=== PATIENT | female | born 1965 | race Caucasian/White ===

== ENCOUNTER 2023-12-31 11:03 | Outpatient (AMB) | payer MEDICARE, MEDICAID, SELFPAY ==
--- NOTE | 2023-12-31 11:06 | MHC.OFFVIS ---
Vital Signs 12/31/23 11:19 Height 4 ft 10 in Weight 169 lb 12.095 oz BMI 35.5 BP 128/70 Blood Pressure Location Rt brachial Position Sitting Pulse 78 Pulse Source Pulse Oximeter Pulse Oximetry (%) 97 Oxygen Delivery Method Room Air Intake Visit Reasons: Colonoscopy Screening Intake Note: Lisa presents in office today for a scheduled initial assessment. CC: Pt is also reporting GI concerns involving abd pain and trouble emptying their bowels intermittently. Pt is also reporting a significant hx of GERD which they are taking omeprazole for PRN. 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 Pt has also noticed dysphagia as well. Pt reports that this has been occurring for years. Pt has no previous hx of colo. Pt does report family hx of polyps but is unable to recall what kind specifically. Pt does also report family hx of colon cancer (cousin). Hydrodynamicist Required: No Allergies hydrocodone [From Vicodin] Adverse Reaction (Intermediate, Verified 12/31/23 11:16) Nausea oxycodone [From Percocet] Adverse Reaction (Intermediate, Verified 12/31/23 11:16) Nausea HPI HPI Colonoscopy Screening: Details: 58-year-old female here for preprocedural meeting to discuss a screening colonoscopy. She is referred by [facility] [place]. PMX Allergic rhininits Asthma/COPD Smoker Hypertension Diabetes High cholesterol Obesity Major depressive disorder Umbilical hernia Low back pain Fibromyalgia Stress urinary incontinence - has to push to empty bladder * SURGICAL HISTORY C section x 2 Rt rotator cuff repair CTR left rt ankle surgery dental surgery * ALLERGIES Hydrocodone Oxycodone * [facility]: none in our system and I can't find any in [facility] site where she thinks she had some. She shows me labs in her pt portal from 09/2023 showing: Unremarkable CBC, normal renal panel and hepatic panel, A1C 8.1%. TODAY'S VISIT This is her first colonoscopy. She strains to pass her stools and I educate her about possible prolapse c/t her sx,s he has seen a urologist w/o resolution. She needs request redirection as she want to cover multiple unrelated health problems. There are no prior problems with anesthesia or sedation. No ID problems. She has well controlled COPD/asthma but denies cardiac problems. Her mother had colon polyps removed. No known 1st degree with CRC. [facility] Social History Alcohol intake: current Comment: Occasionally, social. Patient Tobacco Use Status: Current everyday Tobacco user Cigarette Packs Per Day: 1 Use of substances other than those prescribed or required for medical reasons: No Review of Systems Const Denies fatigue, Denies fever(s), Denies night sweats, Denies poor appetite and Denies weight loss Eyes Details: glasses Reports requires corrective lenses ENT Reports Normal hearing present, Denies dental pain, Denies dysphagia, Denies hearing loss, Denies mouth pain, Denies odynophagia, Denies throat swelling, Denies tongue swelling and Reports other (Dentition adequate) Card Reports no additional complaints Resp Reports wheezing GI Details: Denies abdominal pain, Denies melena, Denies bloating, Denies hematochezia, Reports constipation, Denies GI cramping, Denies dysphagia, Denies excessive flatus, Denies early satiety, Denies heartburn, Denies diarrhea, Denies nausea, Denies odynophagia, Denies vomiting and Denies hematemesis Reports difficulty voiding and Reports urinary incontinence Musc Reports back pain, Reports myalgias and Reports arthralgias Skin/Breast Denies pruritus, Denies lesions, Denies rash and Denies jaundice Neuro Reports Normal hearing present and Denies Abnormal speech present Endo Denies fatigue Aller/Immun Reports seasonal rhinorrhea, Denies throat swelling, Denies tongue swelling and Reports wheezing Physical Exam Vital Signs: Last Vital Signs Pulse 78 12/31/23 11:19 BP 128/70 12/31/23 11:19 Pulse Ox 97 12/31/23 11:19 Oxygen Delivery Method Room Air 12/31/23 11:19 BMI result Body Mass Index 35.5 Const General: cooperative, no acute distress, well developed and well groomed Nutritional Appearance: well nourished and obese Orientation/consciousness: oriented to person, oriented to place and oriented to time Limitations: No language barrier HEENT Head: Yes normocephalic and Yes atraumatic Eyes General: appearance normal, both eyes and all related structures Pupils: Equal, round and reactive pupils present Neck Neck: Yes normal visual inspection and Yes no lymphadenopathy Thyroid: Thyroid normal Resp Effort & Inspection: normal respiratory effort and able to speak in complete sentences Auscultation: wheezes expiratory wheezes and diminished lung sounds bilateral in the lower lung baez Cardio Rate: regular rate Rhythm: regular rhythm Heart sounds: Normal, physiologic split S2 sound present Peripheral pulses: radial pulses present and posterior tibial pulses present GI Inspection: No distended, Yes Abdominal panniculus present, Yes obesity and Yes striae Palpation (GI): Soft to palpation, nontender, no guarding, not rigid, No hepatosplenomegaly present and Hernia present umbilical Percussion: Yes normal to percussion Auscultation: normal bowel sounds Rectal Exam - Female: deferred Abdomen image: 1. surgical scar Skin General skin exam: no rashes or lesions noted, turgor normal, skin not dry, no jaundice, No spider nevi and no striae Rashes: no rashes Nails: normal Neuro General: oriented to person, oriented to place and oriented to time Cranial nerves: Yes Equal, round and reactive pupils present and Yes Normal hearing present Speech: No Abnormal speech present Extrem General: Yes normal to inspection, No clubbing, No cyanosis and No edema Psych Appearance: grossly normal and well kempt Mental Status: mental status grossly normal Speech and movement: Normal speech and movement present Affect: normal affect Attitude: cooperative Thought process: Normal thought process present and not confabulating Thought content: Normal thought content present Insight: Fair insight present (Psych) and Limited insight present (Psych) Judgement: Fair judgement present (Psych) and Limited judgement present (Psych) Assessment & Plan Assessment & Plan (1) Pre-op examination: Code(s): Z01.818 - Encounter for other preprocedural examination Category: Medical Plan This is her first colonoscopy. She strains to pass her stools and I educate her about possible prolapse c/t her sx,s he has seen a urologist w/o resolution. She needs request redirection as she want to cover multiple unrelated health problems. There are no prior problems with anesthesia or sedation. No ID problems. She has well controlled COPD/asthma but denies cardiac problems. Her mother had colon polyps removed. No known 1st degree with CRC. Orders: Orders Complete Blood Count Auto Diff Today Z01.818 - Encounter for other preprocedural examination Colonoscopy - GI Use Only Today Z01.818 - Encounter for other preprocedural examination Comprehensive Met. Panel Today Z01.818 - Encounter for other preprocedural examination Medications: New sod sulf-pot chloride-mag sulf 1.479-0.188- 0.225 gram (Sutab) PO PER PKG DIR for colonoscopy prep 24 tabs 0RF Coding Level of Care Code New Pt Level 3 (30735) Diagnoses Pre-op examination Z01.818
[2023-12-31 11:19] VITALS: BP 128/70; PULSE 78; O2SAT 97; BMI 35.5
== END 2023-12-31 11:56 | disposition home or self-care (01) ==
PROVIDERS: PCP Physician Assistant Medical; Visit Provider Nurse Practitioner
DX: Z01.818 Encounter for other preprocedural examination (principal); Z12.11 Encounter for screening for malignant neoplasm of colon; Z83.719 Family history of colon polyps, unspecified
CPT/HCPCS: 99024

== ENCOUNTER 2023-12-31 11:03 | Outpatient (REF) | payer MEDICARE, MEDICAID, SELFPAY ==
[2023-12-31 12:48] LABS: MANUAL DIFF FLAG NO
[2023-12-31 14:00] LABS: Basophils Absolute Auto 0.1 X10*3/uL (0.0-0.2); Basophils Percent Auto 0.9 % (0-2); Eosinophils Absolute Auto 0.3 X10*3/uL (0.0-0.4); Eosinophils Percent Auto 2.7 % (0-4); Hematocrit 44.9 % (37.0-47.0); Hemoglobin 15.1 g/dl (12.0-16.0); Imm Gran Abs Auto 0.05 X10*3/uL (0.00-0.03); Imm Gran Pct Auto 0.5 % (0.0-0.4); Lymphocytes Absolute Auto 3.8 X10*3/uL (1.2-4.9); Lymphocytes Percent Auto 39.2 % (20-40); Mean Corpuscular HGB Conc 33.6 g/dl (31.0-35.0); Mean Corpuscular Hemoglobin 28.9 pg (27.0-33.0); Mean Corpuscular Volume 85.9 fL (80.0-98.0); Mean Platelet Volume 9.9 fL (9.4-12.3); Monocytes Absolute Auto 0.6 X10*3/uL (0.1-1.2); Monocytes Percent Auto 6.4 % (2-11); Neutrophils Absolute Auto 4.9 x10*3/uL (2.0-8.3); Neutrophils Percent Auto 50.3 % (45-73); Platelet Count 200 X10*3/uL (160-400); Red Blood Count 5.23 X10*6/uL (4.20-5.50); Red Cell Distribution Width 13.9 % (11.0-16.0); White Blood Count 9.7 X10*3/uL (4.8-10.8)
[2023-12-31 14:50] LABS: Alanine Aminotransferase 22 U/L (0-31); Albumin Level 4.2 g/dL (3.5-5.0); Alkaline Phosphatase 82 U/L (39-117); Anion Gap 10 (12-20); Aspartate Amino Transferase 17 U/L (5-31); Bilirubin Total 0.3 mg/dL (0.0-1.0); Blood Urea Nitrogen 10 mg/dL (9-16); Calcium 9.3 mg/dL (8.4-10.2); Carbon Dioxide 27 mmol/L (22-29); Chloride 106 mmol/L (96-108); Estimated Glomerular Filt Rate > 60; Glucose Random 171 mg/dL (60-115); Potassium 4.1 mmol/L (3.3-5.1); Sodium 139 mmol/L (135-145); Total Protein 7.3 g/dL (6.5-8.0)
== END 2023-12-31 11:04 | disposition home or self-care (01) ==
LOC: HO.LAB 11:03
PROVIDERS: PCP Physician Assistant Medical; Visit Provider Nurse Practitioner
DX: Z01.818 Encounter for other preprocedural examination (principal)
CPT/HCPCS: 36415; 80053; 85025; 99212

== ENCOUNTER 2024-06-13 07:48 | Day surgery (SDC) | payer MEDICARE, MEDICAID, SELFPAY ==
[2024-06-09 13:41] VITALS: BMI 35.5
--- NOTE | 2024-06-10 09:12 | P.CONAN_ITS ---
Documented by User: Shannon Cortes NP 06/10/24 09:12 HPI - Anesthesia Eval Consult details Narrative: 59yo F for Colonoscopy Anesthesia Pre-Procedure Meds Is the patient on any of the following meds?: GLP1/DPP4 and SGLT2 Inhib PMFSH Active Problems Active Problems: All Active Problems Pre-op examination (Acute) Low back pain (Acute) Umbilical hernia (Acute) Major depressive disorder (Acute) High cholesterol (Acute) Diabetes (Acute) Hypertension (Acute) Obesity (BMI 30.0-34.9) (Acute) Smoker (Acute) Asthma with COPD (Acute) Past Medical History Medical History GERD (gastroesophageal reflux disease) Obesity Smoker Asthma with COPD Depression Diabetes Elevated cholesterol HTN (hypertension) Back pain Surgical History Surgical History History of ankle surgery Previous section Hx of repair of right rotator cuff Social History Social History Are you a primary day care home provider to a significant other at home: No Do you presently have visiting nurse or other home services: No Alcohol intake: current Comment: Occasionally, social. Patient Tobacco Use Status: Current everyday Tobacco user Tobacco use type: Cigarette Cigarette Packs Per Day: 1 Smoked in Last 30 Days: Yes Patient Interested in Nicotine Replacement: No Have you been hit, kicked, punched, or otherwise hurt by someone within the past year? If so, by whom?: No Are you DNR?: No Advance Directives: No Advance Directives Information Provided: Yes Recently lost weight without trying: No Nutrition Risks: No Nutritional Risk Meds Allergies Allergy/AdvReac Type Severity Reaction Status Date / Time hydrocodone [From Vicodin] AdvReac Intermediate Nausea Verified 06/13/24 08:04 oxycodone [From Percocet] AdvReac Intermediate Nausea Verified 06/13/24 08:04 Home Medications ?Medication ?Instructions ?Recorded ?Confirmed ?Last Taken ?Type albuterol sulfate 2.5 mg/3 mL 2.5 mg inhalation Q4-6H PRN 12/31/23 06/09/24 Unknown History (0.083 %) solution for nebulization Shortness Of Breath albuterol sulfate 90 mcg/actuation 2 puff inhalation Q4H PRN 12/31/23 06/09/24 Unknown History aerosol inhaler (Ventolin HFA) Shortness Of Breath atorvastatin 20 mg tablet 20 mg PO DAILY 12/31/23 06/09/24 Unknown History blood sugar diagnostic (Accu-Chek #10 ea 12/31/23 Unknown History Guide test strips) bupropion HCl 150 mg 24 hr tablet, 150 mg PO DAILY 12/31/23 06/09/24 Unknown History extended release cetirizine 10 mg tablet 10 mg PO DAILY 12/31/23 06/09/24 Unknown History cholecalciferol (vitamin D3) 50 50 mcg PO DAILY 12/31/23 06/13/24 Unknown History mcg (2,000 unit) capsule empagliflozin 25 mg tablet 25 mg PO DAILY 12/31/23 06/09/24 06/08/24 History (Jardiance) escitalopram oxalate 20 mg tablet 20 mg PO DAILY 12/31/23 06/09/24 Unknown History fluticasone 250 mcg-salmeterol 50 1 ea inhalation BID 12/31/23 06/09/24 Unknown History mcg/dose blistr powdr for inhalation (Bayron Bynum) fluticasone propionate 50 1 spray intranasal DAILY 12/31/23 06/09/24 Unknown History mcg/actuation nasal spray,suspension ketoconazole 2 % topical cream 1 appl topical DAILY 12/31/23 06/09/24 Unknown History lorazepam 1 mg tablet 1 mg PO DAILY PRN Anxiety 12/31/23 06/09/24 Unknown History losartan 25 mg tablet 25 mg PO DAILY 12/31/23 06/09/24 Unknown History omeprazole 20 mg capsule,delayed 20 mg PO DAILY 12/31/23 06/09/24 Unknown History release semaglutide 0.25 mg or 0.5 mg (2 0.25 mg subcut QWEEK 06/09/24 06/09/24 06/03/24 History mg/3 mL) subcutaneous pen injector (Ozempic) Exam Height,Weight and Vital Signs: Height 4 ft 10 in Weight 77.111 kg Assessment and Plan Assessment Anesthesia Assessment: Chart Reviewed Documented by User: Jen Blue MD 06/13/24 09:25 [facility] Past Medical History Medical History GERD (gastroesophageal reflux disease) Obesity Smoker Asthma with COPD Depression Diabetes Elevated cholesterol HTN (hypertension) Back pain Surgical History Surgical History History of ankle surgery Previous section Hx of repair of right rotator cuff History of Problems with Anesthesia: No Social History Social History Are you a primary day care home provider to a significant other at home: No Do you presently have visiting nurse or other home services: No Alcohol intake: current Comment: Occasionally, social. Patient Tobacco Use Status: Current everyday Tobacco user Tobacco use type: Cigarette Cigarette Packs Per Day: 1 Smoked in Last 30 Days: Yes Patient Interested in Nicotine Replacement: No Have you been hit, kicked, punched, or otherwise hurt by someone within the past year? If so, by whom?: No Are you DNR?: No Advance Directives: No Advance Directives Information Provided: Yes Recently lost weight without trying: No Nutrition Risks: No Nutritional Risk Meds Allergies Allergy/AdvReac Type Severity Reaction Status Date / Time hydrocodone [From Vicodin] AdvReac Intermediate Nausea Verified 06/13/24 08:04 oxycodone [From Percocet] AdvReac Intermediate Nausea Verified 06/13/24 08:04 Home Medications ?Medication ?Instructions ?Recorded ?Confirmed ?Last Taken ?Type albuterol sulfate 2.5 mg/3 mL 2.5 mg inhalation Q4-6H PRN 12/31/23 06/09/24 Unknown History (0.083 %) solution for nebulization Shortness Of Breath albuterol sulfate 90 mcg/actuation 2 puff inhalation Q4H PRN 12/31/23 06/09/24 Unknown History aerosol inhaler (Ventolin HFA) Shortness Of Breath atorvastatin 20 mg tablet 20 mg PO DAILY 12/31/23 06/09/24 Unknown History blood sugar diagnostic (Accu-Chek #10 ea 12/31/23 Unknown History Guide test strips) bupropion HCl 150 mg 24 hr tablet, 150 mg PO DAILY 12/31/23 06/09/24 Unknown History extended release cetirizine 10 mg tablet 10 mg PO DAILY 12/31/23 06/09/24 Unknown History cholecalciferol (vitamin D3) 50 50 mcg PO DAILY 12/31/23 06/13/24 Unknown History mcg (2,000 unit) capsule empagliflozin 25 mg tablet 25 mg PO DAILY 12/31/23 06/09/24 06/08/24 History (Jardiance) escitalopram oxalate 20 mg tablet 20 mg PO DAILY 12/31/23 06/09/24 Unknown History fluticasone 250 mcg-salmeterol 50 1 ea inhalation BID 12/31/23 06/09/24 Unknown History mcg/dose blistr powdr for inhalation (Bayron Inhmelanie) fluticasone propionate 50 1 spray intranasal DAILY 12/31/23 06/09/24 Unknown History mcg/actuation nasal spray,suspension ketoconazole 2 % topical cream 1 appl topical DAILY 12/31/23 06/09/24 Unknown History lorazepam 1 mg tablet 1 mg PO DAILY PRN Anxiety 12/31/23 06/09/24 Unknown History losartan 25 mg tablet 25 mg PO DAILY 12/31/23 06/09/24 Unknown History omeprazole 20 mg capsule,delayed 20 mg PO DAILY 12/31/23 06/09/24 Unknown History release semaglutide 0.25 mg or 0.5 mg (2 0.25 mg subcut QWEEK 06/09/24 06/09/24 06/03/24 History mg/3 mL) subcutaneous pen injector (Ozempic) Exam Airway Mallampati Class: II TM Dist: >3cm Neck ROM: Full Denture: Upper Partial: Lower Loose/Missing/Broken Teeth: Yes, Upper and Lower Heart: RRR Lungs: CTA Assessment and Plan Assessment Anesthesia Assessment: Anesthesia Plan Discussed Final Anesthetic Review History of Problems with Anesthesia: No NPO: Yes ASA Class: III Final Preanesthetic Review: Meds/Allgs Chart Reviewed, Consent Obtained/Reviewed and Anes Risks/Benef Reviewed Patient Risk: Intermediate Procedure Risk: Low Anesthetic Plan Anesthetic Plan: MAC: Disposition: Standard PACU
--- NOTE | 2024-06-13 07:55 | MHC.SHP ---
Pre-Procedural Eval Section A - 24 Hr Update-Section A only Date of Service: 06/13/24 The patient is an INPATIENT: No The patient has been examined within 24 hours of the surgical procedure. The History & Physical has been completed within 30 days and I have reviewed it.: No Section B - Complete if H&P > 30 days Chief Complaint: Colon cancer screening Relevant Family History (Specify if Yes): Yes Relevant Social History: Tobacco Use Present Medications: see Short Stay Collaborative assessment Medical History: Significant History (Asthma/COPD Smoker Hypertension Diabetes High cholesterol Obesity Major depressive disorder Umbilical hernia Low back pain Fibromyalgia Stress urinary incontinence) History of Previous Operations: Relevant previous surgery/procedure and date(s) (C section x 2 Rt rotator cuff repair CTR left rt ankle surgery dental surgery) Allergies: Allergies Allergy/AdvReac Type Severity Reaction Status Date / Time hydrocodone [From Vicodin] AdvReac Intermediate Nausea Verified 12/31/23 11:16 oxycodone [From Percocet] AdvReac Intermediate Nausea Verified 12/31/23 11:16 Review of Systems Sugical H&P ROS: Negative: Constitution, Cardiovascular, Respiratory and Gastrointestinal Exam Surgical H&P Exam: Normal: Heart, Normal: Lungs, Normal: Extremities and Normal: Abdomen Plan Diagnosis/Plan: Unchanged I have reviewed the history and physical and performed a pertinent physical examination on my patient. No changes have occurred unless specified. Time Spent With Patient Time: Total time managing care of this patient today ____ minutes.
[2024-06-13 08:02] VITALS: BMI 33.4
[2024-06-13] MEDS: Lactated Ringers 1,000 ML 100 ML IVCONT (08:07)
[2024-06-13 08:17] VITALS: BP 114/72; PULSE 98; RESP 18; TEMP 36.7; O2SAT 95
[2024-06-13 08:19] LABS: Glucose, Whole Blood 119 mg/dL (60-115)
[2024-06-13 09:53] VITALS: BP 95/58; PULSE 81; RESP 18; TEMP 36.5; O2SAT 99
--- NOTE | 2024-06-13 09:53 | HO.OPN-COLON ---
Colonoscopy Operative Note Operative Note Date of Service: 06/13/24 Narrative: COLONOSCOPY TILL CECUM WITH BIOPSES, SNARE POLYPECTOMY AND SUBMUCOSAL INJECTION Pre-op diagnosis: Colon cancer screening (first colon), FH of colon polyps . Post-op diagnosis:? Colon polyps, Diverticulosis, hemorrhoids Endoscopist:? Ute Greenberg MD Anesthesia:?MAC Consent: Indications for the procedure and potential complications of bleeding, perforation, reaction to medications and missed diagnosis were discussed with the patient and informed consent was obtained. Instrument: Olympus PCF H 190 L variable stiffness pediatric colonoscope Monitoring: Vital signs and clinical assessment, intermittent blood pressure monitoring, continuous EKG monitoring, Pulse oximetry and Carbon Dioxide monitoring were done throughout the procedure. Please see anesthesia flowsheet. Colon withdrawl time was 29 minutes. Procedure: The patient was placed in the left lateral decubitis position and pre-procedure medications were administered. After a digital rectal examination of the ano-rectum, the video colonoscope was inserted into the rectum and advanced through the colon to the cecum. The colonoscope was slowly withdrawn in a retrograde panoramic fashion and the colon mucosa was carefully examined including a retroflexed view of the rectum. Findings and interventions are described below. Procedure Difficulty: without difficulty. There was excessive spasm in the colon during scope withdrawal Findings: Terminal Ileum: Not evaluated Cecum: A 3-4 mm sessile polyp adjacent to the appendicular orifice - removed with a cold biopsy Ascending Colon: A 12-15 mm sessile polyp in the distal AC (at the hepatic flexure) - removed with a hot snare. Polypectomy site was closed with 1 hemoclip. A 4-5 mm sessile polyp at the hepatic flexure - removed with a cold snare. Moderate diverticulosis throughout the colon Transverse Colon: A 6-7 mm sessile polyp - removed with a cold biopsy Moderate diverticulosis throughout the colon. Descending Colon: Moderate diverticulosis Sigmoid Colon: Four 9-12 mm sessile polyp - removed with a hot snare. A few 5 to 7 mm hyperplastic appearing polyps which were not removed. Severe diverticulosis with luminal narrowing Rectum: Normal Ano-rectum: Normal Colon preparation: Good after some irrigation. [place] Bowel Preparation Scale Right colon; 2 Transverse colon: 2 Left colon; 2 (0 = Unprepared colon segment with mucosa not seen due to solid stool that cannot be cleared. 1 = Portion of mucosa of the colon segment seen, but other areas of the colon segment not well seen due to staining, residual stool and/or opaque liquid. 2 = Minor amount of residual staining, small fragments of stool and/or opaque liquid, but mucosa of colon segment seen well. 3 = Entire mucosa of colon segment seen well with no residual staining, small fragments of stool or opaque liquid) Impression and Post Procedure Diagnosis: Colonoscopy Findings: Eight small to medium sized polyps were removed Moderate to severe diverticulosis seen in the entire colon Plan: Pt has a FU appointment on 06/28/24 with Halina Chambers NP, Repeat Colonoscopy in 3-5 years if polyps are adenomatous and 10 year if polyps are hyperplastic. Above findings were reviewed with the patient and relevant handouts were given and the discharge area.
[2024-06-13 10:08] VITALS: BP 127/72; PULSE 81; RESP 16; TEMP 36.5; O2SAT 96
== END 2024-06-13 10:58 | disposition home or self-care (01) ==
PROVIDERS: PCP Internal Medicine; Visit Provider Internal Medicine Gastroenterology
PROC: 0DJD8ZZ Inspection of Lower Intestinal Tract, Via Natural or Artificial Opening Endoscopic (ICD-10-PCS; CPT 45378; principal; 2024-06-13 09:20)
DX: Z12.11 Encounter for screening for malignant neoplasm of colon (principal); Z83.719 Family history of colon polyps, unspecified; D12.0 Benign neoplasm of cecum; D12.3 Benign neoplasm of transverse colon; K63.5 Polyp of colon; K57.30 Diverticulosis of large intestine without perforation or abscess without bleeding; K64.8 Other hemorrhoids; K21.9 Gastro-esophageal reflux disease without esophagitis; R13.10 Dysphagia, unspecified; I10 Essential (primary) hypertension; E78.00 Pure hypercholesterolemia, unspecified; J44.9 Chronic obstructive pulmonary disease, unspecified; E11.9 Type 2 diabetes mellitus without complications; F32.A Depression, unspecified; E66.9 Obesity, unspecified; Z68.35 Body mass index [BMI] 35.0-35.9, adult; Z79.51 Long term (current) use of inhaled steroids; Z79.84 Long term (current) use of oral hypoglycemic drugs; Z79.85 Long-term (current) use of injectable non-insulin antidiabetic drugs; Z88.5 Allergy status to narcotic agent; Z79.899 Other long term (current) drug therapy; F17.210 Nicotine dependence, cigarettes, uncomplicated; Z98.890 Other specified postprocedural states
CPT/HCPCS: 45385; 45380; 45381; 82947; 88305; J2003; J2704

== ENCOUNTER → 2024-06-13 07:48 | Outpatient (BNV) | payer MEDICARE, MEDICAID, SELFPAY | PROVIDERS: PCP Internal Medicine; Visit Provider Internal Medicine Gastroenterology | DX: Z12.11 Encounter for screening for malignant neoplasm of colon (principal); Z83.719 Family history of colon polyps, unspecified; D12.3 Benign neoplasm of transverse colon; K63.5 Polyp of colon; K57.90 Diverticulosis of intestine, part unspecified, without perforation or abscess without bleeding | CPT/HCPCS: 45380; 45385 ==